=== PATIENT | female | born 1995 | race Caucasian/White ===

== ENCOUNTER 2018-12-10 16:11 | Outpatient (REF) | payer BC, SELFPAY ==
[2018-12-10 22:00] LABS: HCT 41.1 % (36.0-46.0); HGB 13.4 g/dL (12.0-15.5); Mean Corp. HGB Concentration 32.6 g/dL (32.0-36.0); Mean Corpuscular Hemoglobin 25.6 pg (27.0-33.0); Mean Corpuscular Volume 78.6 fL (80-95); Mean Platelet Volume 12.7 fL (8.0-11.0); Platelet Count 247 x1000/uL (130-400); RBC 5.23 m/cumm (4.00-5.20); RBC Distribution Width 14.7 % (11.7-14.6); White Blood Cell Count 4.12 k/cumm (4.4-10.8)
[2018-12-10 22:52] LABS: Anion Gap 10.4 mmol/L (3-11); BUN 7 mg/dL (7-18); CO2 25.6 mmol/L (21.0-32.0); CREATININE 0.68 mg/dL (0.55-1.02); Calcium 8.8 mg/dL (8.5-10.1); Chloride 106 mmol/L (98-107); Glucose 78 mg/dL (70-100); Potassium 3.9 mmol/L (3.5-5.1); Sodium 142 mmol/L (136-145); Vitamin B12 561 pg/mL (193-986)
[2018-12-11 00:19] LABS: Vitamin D 25 Total 7.4 ng/ml (30-100)
[2018-12-11 13:33] LABS: Iron 95 ug/dL (50-175); Total Iron Binding Capacity 394 ug/dL (250-450); Transferrin Sat 24 % (15-50)
== END 2018-12-10 16:31 ==
LOC: NCHCN 16:11
PROVIDERS: PCP Pediatrics; Visit Provider Nurse Practitioner Family
DX: R63.4 Abnormal weight loss (principal); R53.83 Other fatigue
CPT/HCPCS: 80048; 82306; 85027; 82607; 83540; 83550; 84443

== ENCOUNTER 2020-09-28 15:20 | Outpatient (REF) | payer BC, SELFPAY ==
--- NOTE | 2020-09-28 14:30 | PAPFT_PTH ---
PATIENT: Jelena Guillory LOC: [facility] U#:[id number] AGE/SX: 24/F ROOM: RE09/28/[address]: Mounika Viera : 1995 BED: DIS: 09/28/2020 SPEC #: [id number] RECD: 09/29/20 12:55 STATUS: PATRICIO REQ #: [id number] CHANG: 09/28/20 14:[address]: Mounika Viera DEPT: [facility] Cytology RECD BY: Aminta Fallon ENTERED: 09/29/20 12:55 SP TYPE: PAPFT OTHR DR: Avinash Herr MD Tissues: 1 - CX/ENDOCX FOR PAP SMEARS Procedures: PAP THIN PREP/[facility] Screening Comments: [id number]
== END 2020-09-28 15:21 | disposition home or self-care (01) ==
LOC: NCHCN 15:20
PROVIDERS: PCP Pediatrics; Visit Provider Nurse Practitioner Family
DX: Z12.4 Encounter for screening for malignant neoplasm of cervix (principal); Z00.00 Encounter for general adult medical examination without abnormal findings; Z01.419 Encounter for gynecological examination (general) (routine) without abnormal findings
CPT/HCPCS: 88142

== ENCOUNTER 2021-12-12 17:15 | Outpatient (REF) | payer BC, SELFPAY ==
[2021-12-12 20:41] LABS: HCT 41.4 % (36.0-46.0); HGB 14.1 g/dL (11.2-15.7); MCH 28.3 pg (27.0-33.0); MCHC 34.1 % (32.0-36.0); MCV 83 fL (80-95); MPV 11.9 fL (8.0-11.0); Platelet Count 286 10^3/uL (130-400); RBC 4.98 10^6/uL (3.93-5.22); RDW 12.2 % (11.7-14.6); RDW-SD 36.8 fL; WBC 5.96 10^3/uL (4.4-10.8)
[2021-12-13 05:25] LABS: Vitamin D 25 Total 14.1 ng/mL (30-100)
== END 2021-12-12 17:16 | disposition home or self-care (01) ==
LOC: NCHCN 17:15
PROVIDERS: Visit Provider Nurse Practitioner Family
DX: Z00.00 Encounter for general adult medical examination without abnormal findings (principal); R53.83 Other fatigue; E55.9 Vitamin D deficiency, unspecified
CPT/HCPCS: 82306; 85027